=== PATIENT | male | born 1995 | race Caucasian/White ===

== ENCOUNTER 2018-04-03 07:19 | Emergency (ER) | payer SELFPAY ==
--- NOTE | 2018-04-03 07:56 | EDM.PDOC ---
ED HPI GENERAL MEDICAL PROBLEM - General Chief Complaint: Back Pain or Injury Stated Complaint: LOW BACK PAIN Time Seen by Provider: 04/03/18 07:40 Source of Information: Reports: Patient, Family History Limitations: Reports: No Limitations - History of Present Illness INITIAL COMMENTS - FREE TEXT/NARRATIVE: 22-year-old male with low back pain which he has had off and on for months. It' s especially bad the last 72 hours. He's been to chiropractor 2 or 3 times in the last 3 weeks and it's not helping. He has some pain that radiates into his left buttock and down to his left foot but no paresthesias or weakness. No trauma. Onset: Gradual Severity: Moderate Associated Symptoms: Reports: No Other Symptoms Lower Back Pain Score (Numeric/FACES): 8 throat Pain Score (Numeric/FACES): 6 - Related Data Allergies Allergy/AdvReac Type Severity Reaction Status Date / Time No Known Allergies Allergy Verified 04/03/18 07:23 Home Meds: Home Meds NK [No Known Home Meds] 04/03/18 [History] Past Medical History Musculoskeletal History: Reports: Back Pain, Chronic Social & Family History - Tobacco Use Smoking Status *Q: Never Smoker - Caffeine Use Caffeine Use: Reports: Soda - Recreational Drug Use Recreational Drug Use: No ED ROS GENERAL - Review of Systems Review Of Systems: See Below Constitutional: Denies: Fever, Chills Respiratory: Denies: Shortness of Breath Cardiovascular: Denies: Chest Pain GI/Abdominal: Denies: Abdominal Pain, Nausea, Vomiting Skin: Denies: Rash ED EXAM,LOWER BACK PAIN/INJURY - Physical Exam Exam: See Below Exam Limited By: No Limitations General Appearance: Alert, No Apparent Distress (Patient is very uncomfortable, can't stand up straight but not distressed) Head: Atraumatic Respiratory/Chest: No Respiratory Distress Back Exam: Muscle Spasm (Paralumbar muscles bilaterally are very tight, palpation tenderness is worse on the left.) Neurological: Other (Straight leg raising on the left causes intense pain in the back and buttock but no true radiculopathy) Course - Vital Signs Last Recorded V/S: Last Vital Signs Temp 97.0 F 04/03/18 07:34 Pulse 59 L 04/03/18 07:34 Resp 16 04/03/18 07:34 BP 153/96 H 04/03/18 07:34 Pulse Ox 100 04/03/18 07:34 - Re-Assessments/Exams Free Text/Narrative Re-Assessment/Exam: 04/03/18 07:54 Patient will be supplied with 5 days of Flexeril to take 3 times a day, and placed on 50 mg daily prednisone for the next 3-6 days. It's important for him to try to stay active, and if he develops worsening lower extremity symptoms or incontinence he needs to be rechecked. We discussed some exercises to strengthen his lower back. Departure - Departure Time of Disposition: 08:05 Disposition: Home, Self-Care 01 Condition: Good Clinical Impression: Low back pain Qualifiers: Chronicity: acute Back pain laterality: bilateral Sciatica presence: without sciatica Qualified Code(s): M54.5 - Low back pain - Discharge Information Instructions: Back Pain, Adult, [id number] Referrals: PCP,None [Primary Care Provider] - Forms: ED Department Discharge Care Plan Goals: Use muscle relaxers up to 3 times a day, take 5 pills of prednisone with your first meal for the next 3-6 days. An anti-inflammatory such as ibuprofen or naproxen may help as well. Try to stay active with gentle stretching and return if worsening such as numbness or weakness in your leg
== END 2018-04-03 08:05 | disposition home or self-care (01) ==
LOC: JP.ED 07:19
DX: M54.5 Low back pain (principal)
CPT/HCPCS: 99283